=== PATIENT | female | born 1990 | race Caucasian/White ===

== ENCOUNTER → 2016-09-30 | Outpatient (CLI) | payer OTHER ==
[~2016-09-30] MED LIST: NORCO 10-325 T1 EACH PO
[2016-09-30 10:55] LABS: HEMOGLOBIN 12.9 gm/dl (12.3-15.3); RED BLOOD COUNT 4.96 M/UL (4.00-5.10); WHITE BLOOD COUNT 6.5 K/UL (4.5-11.0)
== END ==
LOC: LAB 09:57
PROVIDERS: Obstetrics & Gynecology
DX: Z01.812 Encounter for preprocedural laboratory examination (principal)
CPT/HCPCS: 36415; 84702; 85025

== ENCOUNTER 2021-01-07 13:29 | Emergency (ER) | payer OTHER ==
[~2021-01-07 13:29] MED LIST changes: +AUGMENTIN 500-500 MG PO; +CLARITIN10 M2 PO; +COLACE 100MG C100 MG PO; +IBUPROFEN600 MG PO; +LEXAPRO10 MG PO; +LIPITOR40 MG PO; +LORTAB 5-325 M1 EACH PO; +NORVASC5 MG PO; +SINGULAIR10 MG PO; +VISTARIL 50 MG50 MG PO; +VITAMIN D21250 MCG PO
[2021-01-07 18:00] LABS: HEMOGLOBIN 13.3 gm/dl (12.3-15.3); RED BLOOD COUNT 4.48 M/UL (4.00-5.10); WHITE BLOOD COUNT 7.3 K/UL (4.5-11.0)
[2021-01-07 18:51] LABS: BUN/CREATININE RATIO 8 (0-10)
[2021-01-07] MEDS ORDERED: K-TAB ER20 MEQ PO (19:19)
[2021-01-07] MEDS ORDERED: ONDANSETRON ODT4 MG SL (19:19)
[2021-01-07] MEDS ORDERED: CEFDINIR300 MG PO (19:19)
[2021-01-07] MEDS ORDERED: IBUPROFEN800 MG PO (19:19)
== END 2021-01-07 20:40 | disposition home or self-care (01) ==
LOC: ER1 13:29
PROVIDERS: Physician Assistant
DX: R55 Syncope and collapse (principal); N39.0 Urinary tract infection, site not specified; E86.0 Dehydration; E87.6 Hypokalemia; R51.9 Headache, unspecified; Z20.822 Contact with and (suspected) exposure to COVID-19
CPT/HCPCS: 70450; 71045; 80053; 81001; 82550; 82553; 83874; 84484; 84703; 85025; 87081; 87880; 93005; 96374; 96375; 99284; J1200; J1885; J2765; J7030; U0002